=== PATIENT | female | born 1975 | race African-American/Black ===

== ENCOUNTER 2017-03-24 12:43 | Emergency (ER) | payer OTHER ==
[~2017-03-24] VITALS: Ht 165.1 cm; Wt 136.1 kg
--- NOTE | ~2017-03-24 | EKG ---
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[facility] : 1975 Requested By: Zeynep Zuniga Order Number: [id number] MD: Binu Emerson Measurements Intervals [place] Rate: 91 P: 65 [place]: 148 QRS: -5 QRSD: 94 T: 16 QT: 377 QTc: 464 Interpretive Statements Sinus rhythm No significant abnormality No previous ECG available for comparison Electronically Signed On 03-24-2017 17:03:57 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
[2017-03-24] MEDS ORDERED: IRON325 PO (13:47)
[2017-03-24] MEDS ORDERED: HYDROCHLOROTHIA25 M2 PO (13:47)
[2017-03-24 13:51] LABS: ABSOLUTE NEUTROPHILS 4.4 thou/uL (1.4-8.2); BASOPHILS 1.5 % (0.0-2.0); EOSINOPHILS 2.1 % (0.0-3.0); HEMATOCRIT 36.7 % (37.0-47.0); HEMOGLOBIN 12.4 gm/dL (12.0-15.0); LYMPHOCYTES 36.3 % (24.0-44.0); MCH 27.7 pg (26.0-34.0); MCHC 33.8 g/dL (28.0-37.0); MCV 82.1 fL (80.0-100.0); MONOCYTES 4.5 % (1.0-8.0); PLATELET COUNT 382 thou/uL (150-400); POLYS 55.6 % (36.0-66.0); RBC 4.47 mil/uL (4.20-5.00); RDW 15.5 % (10.5-14.5); WBC 7.9 thou/uL (4.0-11.0)
[2017-03-24 14:01] LABS: ANION GAP 8 mmol/L (7-16); BUN 13 mg/dL (7-18); CALCIUM 9.3 mg/dL (8.5-10.1); CHLORIDE 101 mmol/L (98-107); CO2 29 mmol/L (21-32); CREATININE 0.8 mg/dL (0.6-1.0); GLUCOSE 78 mg/dL (74-106); POTASSIUM 3.7 mmol/L (3.5-5.1); SODIUM 138 mmol/L (136-145)
[2017-03-24 14:09] LABS: ALBUMIN 3.6 g/dL (3.4-5.0); LIPASE 145 U/L (73-393); SGOT 14 U/L (15-37); SGPT 23 U/L (30-65); TOTAL BILIRUBIN 0.2 mg/dL (<0.1-1.0); TOTAL PROTEIN 7.5 g/dL (6.4-8.2); TROPONIN-I < 0.04 ng/mL (<0.06)
[2017-03-24] MEDS ORDERED: ZANTAC 150MG T150 MG PO (14:22)
== END 2017-03-24 14:36 | disposition home or self-care (01) ==
LOC: ER 12:43
PROVIDERS: Nurse Practitioner Family
DX: R07.89 Other chest pain (principal); Z88.5 Allergy status to narcotic agent; Z88.8 Allergy status to other drugs, medicaments and biological substances

== ENCOUNTER 2018-02-16 22:45 | Emergency (ER) | payer OTHER ==
[~2018-02-16] VITALS: Ht 165.1 cm; Wt 95.3 kg
[~2018-02-16 22:45] MED LIST: HYDROCHLOROTHIA25 M2 PO; IRON325 PO; ZANTAC 150MG T150 MG PO
[2018-02-16] MEDS ORDERED: MAXZIDE-25 MG1 EACH PO (23:09)
[2018-02-16] MEDS ORDERED: METOPROLOL SUC100 MG PO (23:10)
[2018-02-16] MEDS ORDERED: LATANOPROST2.5 ML OPHTHALMIC (23:10)
[2018-02-16 23:14] LABS: ABSOLUTE NEUTROPHILS 3.2 thou/uL (1.4-8.2); BASOPHILS 1.5 % (0.0-2.0); EOSINOPHILS 1.7 % (0.0-3.0); HEMATOCRIT 38.7 % (37.0-47.0); HEMOGLOBIN 13.1 gm/dL (12.0-15.0); LYMPHOCYTES 43.9 % (24.0-44.0); MCH 28.9 pg (26.0-34.0); MCHC 33.9 g/dL (28.0-37.0); MCV 85.1 fL (80.0-100.0); MONOCYTES 5.3 % (1.0-8.0); PLATELET COUNT 311 thou/uL (150-400); POLYS 47.6 % (36.0-66.0); RBC 4.54 mil/uL (4.20-5.00); RDW 14.8 % (10.5-14.5); WBC 6.6 thou/uL (4.0-11.0)
[2018-02-16 23:27] LABS: ANION GAP 8 mmol/L (7-16); BUN 16 mg/dL (7-18); CALCIUM 8.8 mg/dL (8.5-10.1); CHLORIDE 101 mmol/L (98-107); CO2 27 mmol/L (21-32); CREATININE 1.2 mg/dL (0.6-1.0); GLUCOSE 159 mg/dL (74-106); POTASSIUM 3.7 mmol/L (3.5-5.1); SODIUM 136 mmol/L (136-145)
[2018-02-16 23:32] LABS: ALBUMIN 3.3 g/dL (3.4-5.0); SGOT 12 U/L (15-37); SGPT 22 U/L (30-65); TOTAL BILIRUBIN 0.3 mg/dL (<0.1-1.0); TOTAL PROTEIN 7.4 g/dL (6.4-8.2); TROPONIN-I <0.06 ng/mL (<0.06)
[2018-02-17 02:24] VITALS: BP 125/74
--- NOTE | 2018-02-17 08:18 | EKG ---
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 02/17/18 0818 2253 225 Binu Emerson MD, FACC /EPI
== END 2018-02-17 02:24 | disposition home or self-care (01) ==
LOC: ER 22:45
PROVIDERS: Student in an Organized Health Care Education/Training Program
DX: I10 Essential (primary) hypertension (principal); Z87.891 Personal history of nicotine dependence; Z88.5 Allergy status to narcotic agent; Z88.6 Allergy status to analgesic agent; Z88.8 Allergy status to other drugs, medicaments and biological substances; Z86.2 Personal history of diseases of the blood and blood-forming organs and certain disorders involving the immune mechanism

== ENCOUNTER 2018-03-26 21:27 | Emergency (ER) | payer OTHER ==
[~2018-03-26] VITALS: Ht 165.1 cm; Wt 140.6 kg
[~2018-03-26 21:27] MED LIST changes: +LATANOPROST2.5 ML OPHTHALMIC; +MAXZIDE-25 MG1 EACH PO; +METOPROLOL SUC100 MG PO
[2018-03-26] MEDS ORDERED: NORCO 5-325 TA1 EACH PO (22:11)
[2018-03-26] MEDS ORDERED: ONDANSETRON HCL4 M2 PO (22:11)
[2018-03-26 22:42] VITALS: BP 168/96
== END 2018-03-26 22:42 | disposition home or self-care (01) ==
LOC: ER 21:27
DX: S82.491A Other fracture of shaft of right fibula, initial encounter for closed fracture (principal); I10 Essential (primary) hypertension; Z86.2 Personal history of diseases of the blood and blood-forming organs and certain disorders involving the immune mechanism; Z88.5 Allergy status to narcotic agent; Z88.6 Allergy status to analgesic agent; Z88.8 Allergy status to other drugs, medicaments and biological substances; Z87.891 Personal history of nicotine dependence; W00.0XXA Fall on same level due to ice and snow, initial encounter; Y93.89 Activity, other specified; Y92.89 Other specified places as the place of occurrence of the external cause; Y99.8 Other external cause status